=== PATIENT | female | born 1990 | race Caucasian/White ===

== ENCOUNTER → 2022-05-23 13:19 | Outpatient (REF) | payer OTHER, SELFPAY ==
--- NOTE | 2022-05-23 13:27 | CA_ITS ---
Transthoracic Echocardiogram Patient (Last, First, Middle): Nurys Ennis, Gender: Female Date of : 1990 Age: 31 Procedure Date: 05/23/2022 Procedure Type: Transthoracic Echocardiogram Location: OP Height: 165.1 cm Weight: 58.06 kg BSA: 1.64 m2 Heart Rate: 60 bpm BP: 110 / 60 mmHg Enterprise Application Architect: SB Referring MD: Tushar Lombardo MD Symptoms: SYNCOPE Study Quality: Technically Difficult but adequate (narrow ribs) ECG Rhythm: Sinus Conclusions: - The left ventricular systolic function is normal. The calculated ejection fraction is 63% by biplane method. - No obvious valvular pathology seen on this study. Findings Left Ventricle Normal left ventricular cavity size. There is normal left ventricular wall thickness. The left ventricular systolic function is normal. The calculated ejection fraction is 63% by biplane method. There is no evidence of regional wall motion abnormalities. Diastolic function is normal for age. Right Ventricle Normal right ventricular cavity size and systolic function. Atria Both atria are normal in size. Aortic Valve There is a normal trileaflet aortic valve. There is no aortic valve stenosis. There is no aortic valve regurgitation. Mitral Valve The mitral valve appears normal. There is no mitral valve regurgitation. There is no mitral valve stenosis. Pulmonic Valve The pulmonic valve is likely normal. Tricuspid Valve Normal tricuspid valve structure. There is trace tricuspid valve regurgitation. There is no evidence of pulmonary hypertension. Great Vessels The aortic annulus, sinuses of valsalva, and asc aorta are normal in size. Venous The inferior vena cava is normal in size and collapses less than 50% with inspiration. Pericardium/Pleural There is no evidence of pericardial effusion. Prior Study Comparison No prior study available for comparison. Recommendations, Care & Conclusions No obvious valvular pathology seen on this study. Measurements 2D Linear Measurements IVSd: 0.58 0.6-0.9/0.6-1.0 cm LVIDd: 4.26 3.9-5.3/4.2-5.9 cm LVIDd Index: 2.60 2.4-3.2/2.2-3.1 cm/m2 LVIDs: 3.06 2.0-3.6 cm LVPWd: 0.72 0.7-1.1 cm LA Diam: 2.70 2.7-3.8/3.0-4.0 cm LAIDs Index: 1.65 1.5-2.3 cm/m2 LV Mass: 98.06 67-162/88-224 g LV Mass Index: 59.80 43-95/49-115 g/m2 LVOT Diam: 2.00 3.0+(-)1.3 cm 2D Systolic Function EF 4C: 54.40 >55% EF 2C: 68.20 >55% EF BiP: 62.50 >55% Mitral Valve MV Pk E: 1.05 MV PK A: 0.64 MV Decel Time: 184.00 E/A: 1.60 E'Lateral: 13.20 E'Medial: 9.90 E/E' Med: 10.60 E/E' Lat: 8.00 PHT: 54.00 MVA PHT: 4.07 Decel Wood: 5.69 Aortic Valve AoV Pk Jose: 1.02 AoV Mn Jose: 0.73 AoV VTI: 0.21 AoV Pk Grad: 4.00 Aov Mn Grad: 2.00 SOCRATES Cont.VTI: 2.98 LVOT LVOT Pk Jose: 0.94 LVOT Mn Jose: 0.72 LVOT VTI: 0.20 LVOT Pk Grad: 4.00 LVOT Mn Grad: 2.00 LVOT Diam: 2.00 LVOT Area: 3.14 Diastolic Function MV Pk E: 1.05 MV Pk A: 0.64 E/A: 1.60 E'Medial: 9.90 E/E' Med: 10.60 E' Laterial: 13.20 E/E' Lat: 8.00 Right Ventricle TAPSE (mm): 25.00 TVS' Jose: 11.10 Tricuspid Valve TR Pk Jose: 1.79 TR Pk Grad: 13.00 RA Press: 3.00 RVSP: 16.00 Great Vessels Aorta Sinus of Valsalva: 2.50 2.0-3.5 cm Ao Asc: 2.40 2.1-3.4 cm Pulmonary Veins Pulm Vein S/D 1.30 Pulmonary Valve PV Pk Jose: 0.88 Peak PV Grad: 3.00 Updated in Other Vendor System with Status of Final Varun Case MD electronically signed on 05/25/2022 10:54:51 AM with status of Final
--- NOTE | 2022-05-23 13:28 | HM_ITS ---
* Total monitoring time 2 days and 2 hours. * Underlying rhythm is sinus. Average rate 85/Min. Range 49 to 152/Min. * About 17% the time, rate greater than 100. * No significant bradycardia, pauses or AV blocks. * Very rare ventricular ectopy. * Patient symptoms in diary including shortness of breath, pounding heartbeat, dizziness without mention of date. MTDD
== END ==
LOC: HO.CARD 13:19
PROVIDERS: Visit Provider Psychiatry & Neurology Neurology
DX: R55 Syncope and collapse (principal)
CPT/HCPCS: 93242; 93306